=== PATIENT | female | born 1970 | race Asian ===

== ENCOUNTER → 2025-05-08 | Outpatient (CLI) | payer BC, SELFPAY ==
--- NOTE | 2025-05-08 12:11 | RAD_ITS ---
PROCEDURE: CHEST PA AND LATERAL 05/08/2025 REASON FOR EXAM: NONSPECIFIC REACTION TO TUBERCULIN SKIN TEST WITHOUT ACTIVE TUBER TECHNIQUE: Procedure Code: RADCXR Modality: DX Procedure: CHEST PA AND LATERAL COMPARISON: None. FINDINGS: The lungs are clear. The heart size is normal. There is questionable aneurysmal dilatation of the aortic arch. The upper abdominal bowel gas pattern is normal. RAD/Chest PA and Lateral IMPRESSION: Possible aneurysmal dilatation of aortic arch. There are no findings to sugges t tuberculosis. Reading Location: [id number]
[2025-05-13 07:07] LABS: QNTFERON TB Mitogen Value > 10.00 IU/mL (.); QNTFERON TB Nil Value 0.54 IU/mL (.); QNTFERON TB1+ Ag Value 1.92 IU/mL (.); QNTFERON TB2+ Ag Value 2.45 IU/mL (.); QNTIFERON TB Positive Criteria Positive (Negative)
== END | disposition home or self-care (01) ==
LOC: PAVLAB 11:50 → LAB 11:54
PROVIDERS: PCP Family Medicine; Referring Provider Family Medicine; Visit Provider Family Medicine
DX: R76.11 Nonspecific reaction to tuberculin skin test without active tuberculosis (principal)
CPT/HCPCS: 36415; 71046; 86480

== ENCOUNTER → 2025-05-26 | Outpatient (CLI) | payer BC, SELFPAY ==
--- NOTE | 2025-05-26 12:51 | US_ITS ---
PROCEDURE: KIDNEY AND BLADDER 05/26/2025 REASON FOR EXAM: ABNORMAL IMMUNOLOG FINDINGS IN SPECIMENS FROM [facility] TECHNIQUE: Procedure Code: USKI Modality: US Procedure: KIDNEY AND BLADDER COMPARISON: none FINDINGS: Right kidney measures 9.3 cm and left kidney measures 9.9 cm. Normal echotexture of bilateral kidneys. Trace right sided hydronephrosis. No renal stones. Urinary bladder is unremarkable. US/Kidney and Bladder IMPRESSION: Trace right sided hydronephrosis. Reading Location: [id number]
== END | disposition home or self-care (01) ==
LOC: US 12:50
PROVIDERS: PCP Family Medicine; Referring Provider Family Medicine; Visit Provider Family Medicine
DX: R76.11 Nonspecific reaction to tuberculin skin test without active tuberculosis (principal); R89.4 Abnormal immunological findings in specimens from other organs, systems and tissues
CPT/HCPCS: 76770

== ENCOUNTER → 2025-07-24 | Outpatient (CLI) | payer BC, SELFPAY ==
--- NOTE | 2025-07-24 07:51 | CT_ITS ---
PROCEDURE: CTA CHEST W/WO CONTRAST 07/24/2025 REASON FOR EXAM: CONGENITAL MALFORMATIONS OF AORTA TECHNIQUE: Procedure Code: CTCTACHWW Modality: CT Procedure: CTA CHEST W/WO CONTRAST Multiplanar Sagittal and Coronal images were obtained. 3D post processing was performed CONTRAST: Isovue 370 VOLUME: 75 mL One or more dose reduction techniques were used (e.g., Automated exposure control, adjustment of the mA and/or kV according to patient size, use of iterative reconstruction technique). RADIATION DOSE SUMMARY: CTDlvol: 5.4 mGy DLP: 216.28 mGycm COMPARISON: Prior chest radiograph dated May 08, 2025. FINDINGS: Hardware: None Lymph nodes: No significant lymph nodes are seen. Heart: The heart is nonenlarged. Thoracic Aorta: No thoracic aortic aneurysm or dissection. Pulmonary Vessels: The pulmonary vessels are well opacified. No evidence of pulmonary embolism. Lungs and Airways: Lungs are clear. Pleura: No pleural effusion. Upper Abdomen: Unremarkable Bones: Degenerative changes of the thoracic spine. CT/CTA Chest W/WO Contrast IMPRESSION: No evidence of aneurysmal dilatation of the of the thoracic aorta. The lungs are clear. Reading Location: [id number]
--- OUTSIDE RECORDS SUMMARY | 2025-07-24 08:09 | XMS RPT_ITS | CCD ---
Author Organization [facility] Care Team Providers Care Communication Manager Name Role Phone Jackie DO, Marilee Primary Care Provider Jackie DO Marilee Attending Provider Jackie DO Marilee Referring Provider [phone] Jackie VSC, Marilee Attending Unavailable Jackie VSC, Marilee Referring Unavailable Jackie VSC, Marilee Primary Care Unavailable Jackie VSC, Marilee Attending Unavailable Jackie VSC, Marilee Referring Unavailable Jackie VSC, Marilee Primary Care Unavailable Jackie VSC, Marilee Attending Unavailable Jackie VSC, Marilee Referring Unavailable Jackie VSC, Marilee Primary Care Unavailable Problems Problem Classification Problem Date Documented Date Episodic/Chronic Cardiac and circulatory congenital anomalies (1 source) Other congenital malformations of aorta; Translations: [Other congenital malformations of aorta] Onset: 07-09-2025 Chronic Immunizations and screening for infectious disease (1 source) Nonspecific reaction to tuberculin skin test without active tuberculosis; Translations: [Nonspecific reaction to tuberculin skin test without active tuberculosis] Onset: 06-02-2025 Episodic Other screening for suspected conditions (not mental disorders or infectious disease) (1 source) Abnormal findings on diagnostic imaging of other specified body structures; Translations: [Abnormal findings on diagnostic imaging of other specified body structures] Onset: 07-09-2025 Chronic Results Test Name Value Interpretation Reference Range Facil ity Kidney and Bladderon 025 Kidney and Bladder [facility] Imaging Services [address] [facility] [place] [address] Kidney and Bladder MR#: [id number] Acct: [id number] Name: CHOLO HYLTON Rep #: [id number] : 1970 F 54 From: Setvie Miller PCP: Marilee Mejia DO Status: REG CLI Study: Kidney and Bladder Date of Exam: 05/26/25 Exam# [id number] Ordering Dr: Marilee Mejia [facility] D O PROCEDURE: KIDNEY AND BLADDER 05/26/2025 REASON FOR EXAM: ABNORMAL IMMUNOLOG FINDINGS IN SPECIMENS FROM OTH TECHNIQUE: Procedure Code: USKI Modality: US Procedure: KIDNEY AND BLADDER COMPARISON: none FINDINGS: Right kidney measures 9.3 cm and left kidney measures 9.9 cm. Normal echotexture of bilateral kidneys. Trace right sided hydronephrosis. No renal stones. Urinary bladder is unremarkable. US/Kidney and Bladder IMPRESSION: Trace right sided hydronephrosis. Reading Location: [facility] CC: Marilee Mejia DO [employer]: Signed Normal [facility] Quantiferon TB-Gold+on 05-13 QFT MITOGEN WALESKA > 10.00 Normal . [facility] Comment on above: Performed By: #### L 3400.8000 #### [facility] [address] [place], [place], [id number] QFT NIL VALUE 0.54 IU/mL Normal . [facility] Comment on above: Performed By: #### L 3400.8000 #### [facility] [address] [place], [place], [id number] QFT TB GOLD+ Comment Normal . [facility] Comment on above: Result Comment: Ryne tiFERON-TB Gold Plus is a qualitative indirect test for M tuberculosis infection (including disease) and is intended for use in conjunction with risk assessment, radiography, and other medical and diagnostic evaluations. The QuantiFERON-TB Gold Plus result is determined by subtracting the Nil value from either TB antigen (Ag) value. The Mitogen tube serves as a control for the test. Performed By: #### L 3400.8000 #### [facility] [address] [place], [place], [id number] QFT TB POS CRIT Positive Abnormal Negative [facility] Comment on above: Result Comment: Clie nt Requested Flag A response to M tuberculosis antigens has been detected. If patient is at low risk for Tuberculosis, the result should be interpreted with caution and repeat testing on a new specimen is recommended (ATS/IDSA/CDC Clinical Practice Guidelines, 2017). False positives can also occur due to infection by M kansasii, M szulgai, or M marinum. The specimen received for QuantiFERON testing was incubated by the ordering institution. Specific procedures outlined in our Directory of Services and in the package insert for the QuantiFERON Gold (In Tube) test must be followed to enable for proper stimulation of cells for the production of interferon gamma. Chemiluminescence immunoassay methodology Performed at: [facility] [id number] Parts Cataloguer: Harish Darling PhD, Phone: [phone] Performed By: #### L 3400.8000 #### [facility] [address] [facility] [place], [place], [address] QFT TB1+ AG WALESKA 1.92 IU/mL Normal . [facility] Comment on above: Performed By: #### L 3400.8000 #### [facility] [address] [facility] [place], [place], [address] QFT TB2+ AG WALESKA 2.45 IU/mL Normal . [facility] Comment on above: Performed By: #### L 3400.8000 #### [facility] [address] [facility] [place], [place], [address] Chest PA and Lateralon 05-08 Chest PA and Lateral [facility] [address] [place], [place] [address] Chest PA and Lateral MR#: [id number] Acct: [id number] Name: CHOLO HYLTON Rep #: [id number] : 1970 F 54 From: Sal Barrera MD PCP: Marilee Mejia DO Status: REG CLI Study: Chest PA and Lateral Date of Exam: 05/08/25 Exam# [id number] Ordering Dr: Marilee Mejia D O PROCEDURE: CHEST PA AND LATERAL 05/08/2025 REASON FOR EXAM: NONSPECIFIC REACTION TO TUBERCULIN SKIN TEST WITHOUT ACTIVE TUBER TECHNIQUE: Procedure Code: RADCXR Modality: DX Procedure: CHEST PA AND LATERAL COMPARISON: None. FINDINGS: The lungs are clear. The heart size is normal. There is questionable aneurysmal dilatation of the aortic arch. The upper abdominal bowel gas pattern is normal. RAD/Chest PA and Lateral IMPRESSION: Possible aneurysmal dilatation of aortic arch. There are no findings to suggest tuberculosis. Reading Location: [id number] CC: Marilee Mejia DO [employer]: Signed Normal [facility] Qualitative QuantiFERON-TB g old in tube testOrdered By: Marilee Mejia on 05-08-2025 M. tuberculosis tuberculin stim IFN-g Ql (Bld) 1.92 IU/mL . [facility] Encounters Encounter Date Encounter Type Care Provider Facility Start: 07-24-2025 ambulatory Marilee Mejia [facility] Faci lity:[facility] Start: 05-26-2025 End: 05-26-2025 ambulatory Marilee Mejia DO Work Phone: -Ultrasound [facility] Start: 05-26-2025 End: 05-26-2025 Patient encounter procedure Marilee Meija DO -Ultrasound [facility] Work Phone: Start: 05-26-2025 End: 05-26-2025 ambulatory Marilee Mejia [facility] Facility:[facility] Start: 05-08-2025 End: 05-08-2025 ambulatory Marilee Mejia DO Work Phone: -Laboratory Start: 05-08-2025 End: 05-08-2025 Patient encounter procedure Marilee Mejia DO -Laboratory Work Phone: Start: 05-08-2025 End: 05-08-2025 ambulatory Marilee Mejia [facility] Facility:[facility] Procedures Date Procedure Procedure Detail Performing Clinician Start: 05-26-2025 Us [facility] real time w/image complete Marilee Mejia DO Work Phone: Start: 05-08-2025 X-ray of chest, PA and lateral views Leobardo Mejia DO Work Phone: Start: 05-08-2025 In-vitro immunologic test Marilee Mejia DO Work Phone: Comment on above: QuantiFERON-TB Gold Plus is a qualitativ e indirect test forM tuberculosis infection (including disease) and isintended for use in conjunction with risk assessment,radiography, and other medical and diagnostic evaluations.The QuantiFERON-TB Gold Plus result is determined bysubtracting the Nil value from either TB antigen (Ag)value. The Mitogen tube serves as a control for the test. Client Requested Fla gA response to M tuberculosis antigens has been detected.If patient is at low risk for Tuberculosis, the resultshould be interpreted with caution and repeat testing on anew specimen is recommended (ATS/IDSA/CDC Clinical PracticeGuidelines, 2017). False positives can also occur due toinfection by M kansasii, M szulgai, or M marinum.The specimen received for QuantiFERON testing was incubatedby the ordering institution. Specific procedures outlinedin our Directory of Services and in the package insert forthe QuantiFERON Gold (In Tube) test must be followed toenable for proper stimulation of cells for the productionof interferon gamma. Chemiluminescence immunoassaymethodologyPerformed at: [facility] [id number] Director: Harish Darling PhD, Phone: [phone] Payers Date Payer Category Payer Unknown [id number] 2025 Self-pay 2025 Unknown [id number] Unknown [id number] Unknown [id number] Unknown [id number] Social History Date Type Detail Facility Tobacco smoking stat us MNIS Unknown if ever smoked [facility] Work Phone: Start: 1970 Sex Assigned At Female [facility] Sex Female [facility] Radiology Diagnostic study note 05-26-2025 Note Date & Type Note Facility 05-26-2025 Radiology Diagnostic study note [facility] Services [address] [place], [place] [id number] Kidney and Bladder MR#: [id number] Acct: [id number] Name: CHOLO HYLTON Rep #: [id number] : 1970 F 54 From: Anahi Louis MD PCP: Marilee Mejia DO Status: REG CLI Study:Kidney and Bladder Date of Exam: 0 05/26/25 Exam# [id number] Ordering Dr: Shawn Mejia [facility] PROCEDURE: KIDNEY AND BLADDER 05/26/2025 REASON FOR EXAM: ABNORMAL IMMUNOLOG FINDINGS IN SPECIMENS FROM OT TECHNIQUE: Procedure Code: USKI Modality: US Procedure: KIDNEY AND BLADDER COMPARISON: none FINDINGS: Right kidney measures 9.3 cm and left kidney measures 9.9 cm. Normal echotexture of bilateral kidneys. Trace right sided hydronephrosis. No renal stones. Urinary bladder is unremarkable. US/Kidney and Bladder IMPRESSION: Trace right sided hydronephrosis. Reading Location: [id number] CC: Marilee Mejia DO ~ [employer]: Signed [facility] Radiology Diagnostic study note 05-08-2025 Note Date & Type Note Facility 05-08-2025 Radiology Diagnostic study note [facility] Imaging Services [address] [place] [address] Chest PA and Lateral MR#: [id number] Acct: [id number] Name: CHOLO HYLTON Rep #: [id number] : 1970 F 54 From: Duarte Barrera MD PCP: Marilee Mejia DO Status: REG CLI Study:Chest PA and Lateral Date of Exam: 05/08/25 Exam# [id number] Ordering Dr: Shawn Mejia DO PROCEDURE: CHEST PA AND LATERAL 05/08/2025 REASON FOR EXAM: NONSPECIFIC REACTION TO TUBERCULIN SKIN TEST WITHOUT ACTIVE TUBER TECHNIQUE: Procedure Code: RADCXR Modality: DX Procedure: CHEST PA AND LATERAL COMPARISON: None. FINDINGS: The lungs are clear. The heart size is normal. There is questionable aneurysmal dilatation of the aortic arch. The upper abdominal bowel gas pattern is normal. RAD/Chest PA and Lateral IMPRESSION: Possible aneurysmal dilatation of aortic arch. There are no findings to suggesttuberculosis. Reading Location: [id number] CC: Marilee Mejia DO ~ [employer]: Signed [facility] Work Phone: Evaluation note Note Date & Type Note Facility Evaluation note No assessment information availa ble [facility] Work Phone: Reason for referral (narrative) Note Date & Type Note Facility Reason for referral (narrative) No reason for referral information available [facility] Work Phone: Chief Complaint and Reason for Visit Chief Complaint Admit Date ABNORMAL IMMUNOLOG FINDINGS IN SPECIMENS FROM OTH May 26, 2025 12:46pm Summary Purpose Family History No Family History Records Found Advance Directives No Advanced Directives Records Found Additional Source Comments Care Teams (unrecognized sec tion and content) Team Status: Active Member Role/Relationship Status Dates Marilee MITTAL DO Primary Care Provider Active Team Status: Inactive Member Role/Relationship Status Dates Marilee MITTAL DO Primary Care Provider Active Start: May 08, 2025 End: May 08, 2025 Marilee MITTAL DO Attending Provider Active Start: May 08, 2025 End: May 08, 2025 Marilee MITTAL DO Referring Provider Active Start: May 08, 2025 End: May 08, 2025 Team Status: Active Member Role/Relationship Status Dates Marilee MITTAL DO Primary care physician Active Team Status: Inactive Member Role/Relationship Status Dates Marilee Jackie VSC, DO Primary care physician Active Start: May 08, 2025 End: May 08, 2025 Marilee Jackie VSC, DO Attending physician Active Start: May 08, 2025 End: May 08, 2025 Marilee Jackie VSC, DO Referring Provider Active Start: May 08, 2025 End: May 08, 2025 Team Status: Inactive Member Role/Relationship Status Dates Marileebritany Walshnger VSC, DO Primary care physician Active Start: May 26, 2025 End: May 26, 2025 Marilee Jackie VSC, DO Attending physician Active Start: May 26, 2025 End: May 26, 2025 Marilee Mejia VSC, DO Referring Provider Active Start: May 26, 2025 End: May 26, 2025 Goals (unrecognized section and content) Goals may be documented in a n alternate sectionGoals may be documented in an alternate section INFORMATION SOURCE (unrecogn ized section and content) DATE CREATED AUTHOR 07/11/2025 [facility] FOR RECORDS PERTAINING TO PATIENTS WHO ARE OR HAVE BEEN ENROLLED IN A CHEMICAL DEPENDENCY/SUBSTANCEABUSE PROGRAM, SOME INFORMATION MAY BE OMITTED. This clinical summary was aggregated from multiple sources. Caution should be exercised in using it in the provision of clinical care. This summary normalizes information from multiple sources, and as a consequence, information in this document may materially change the coding, format and clinical context of patient data. In addition, data may be omitted in some cases. CLINICAL DECISIONS SHOULD BE BASED ON THE PRIMARY CLINICAL RECORDS. [facility] [employer] provides no warranty or guarantee of the accuracy or completeness of information in this document.
== END | disposition home or self-care (01) ==
LOC: CT 07:48
PROVIDERS: PCP Family Medicine; Referring Provider Family Medicine; Visit Provider Family Medicine
DX: Q25.49 Other congenital malformations of aorta (principal); R93.89 Abnormal findings on diagnostic imaging of other specified body structures
CPT/HCPCS: 71275; Q9967

== ENCOUNTER → 2025-08-04 | Outpatient (CLI) | payer BC, SELFPAY ==
[2025-08-04 13:04] LABS: AST(SGOT) 27 U/L (<=31); Alanine Aminotransfer ALT/SGPT 21 U/L (<=34); Albumin, Serum 4.3 g/dL (3.5-5.0); Alkaline Phosphatase 58 U/L (35-104); Anion Gap 10 (5-15); BUN 17 mg/dL (4-19); BUN/Creat Ratio 18.0 RATIO (10-20); Calcium,Total 9.4 mg/dL (7.6-11.0); Carbon Dioxide 26.5 mmol/L (21.0-32.0); Chloride 103 mmol/L (98-108); Cholesterol 282 mg/dL (<=200); Globulin 3.1 g/dL (2.2-4.2); Glucose 93 mg/dL (70-99); Low Density Lipoprotein Calc. 191 mg/dL; Potassium 3.9 mmol/L (3.3-5.1); Triglycerides 62 mg/dL; Very Low Density Lipoprotein 12 mg/dL (5-40); cholesterol:hdl ratio screen 3.46
== END | disposition home or self-care (01) ==
LOC: VSLAB 08:12
PROVIDERS: PCP Family Medicine; Referring Provider Nurse Practitioner Family; Visit Provider Nurse Practitioner Family
DX: Z13.220 Encounter for screening for lipoid disorders (principal); Z13.1 Encounter for screening for diabetes mellitus; R76.11 Nonspecific reaction to tuberculin skin test without active tuberculosis
CPT/HCPCS: 36415; 80053; 80061; 83036